=== PATIENT | male | born 1935 | race Caucasian/White ===

== ENCOUNTER 2017-09-20 07:40 | Day surgery (SDC) | payer MEDICARE, OTHER ==
[~2017-09-20] VITALS: Ht 167.6 cm; Wt 76.4 kg
[~2017-09-20 07:40] MED LIST: ASPI81CH PO; ATOR40TA PO; AZIT250 PO; CEFP200 PO; CLOP75 PO; ISOMON20 PO; Isosorbide Mono60 MG PO; LISI20 PO; Lantus100 UNIT/1 SC; METO25ER PO; METO50ER PO; NAC600 MG PO; NITR.4SL SL; Novolog Fl100 UNIT/1 SC; PANT20 PO; RANO500T PO; SUCR1 PO; TRADJENTA5 MG PO
== END 2017-09-20 10:07 | disposition home or self-care (01) ==
LOC: ORSCSDS 07:40
PROVIDERS: Ophthalmology
PROC: 08RK3JZ Replacement of Left Lens with Synthetic Substitute, Percutaneous Approach (ICD-10-PCS; principal; 2017-09-20 09:30)
DX: H25.12 Age-related nuclear cataract, left eye (principal); H21.81 Floppy iris syndrome; E11.36 Type 2 diabetes mellitus with diabetic cataract; I25.10 Atherosclerotic heart disease of native coronary artery without angina pectoris; Z95.1 Presence of aortocoronary bypass graft; Z79.82 Long term (current) use of aspirin; Z79.4 Long term (current) use of insulin; Z79.899 Other long term (current) drug therapy; Z87.891 Personal history of nicotine dependence
CPT/HCPCS: 82947; J2250; J3010; J3301; J7040; V2632